=== PATIENT | male | born 1950 | race Hispanic/Latino ===

== ENCOUNTER 2019-03-10 14:32 | Emergency (ER) | payer MEDICARE, OTHER | END 2019-03-10 16:18 | disposition home or self-care (01) | LOC: EDH 14:32 | DX: M71.22 Synovial cyst of popliteal space [Baker], left knee (principal); I10 Essential (primary) hypertension; E78.5 Hyperlipidemia, unspecified; E11.9 Type 2 diabetes mellitus without complications | CPT/HCPCS: 93971 ==

== ENCOUNTER 2019-04-10 22:10 | Emergency (ER) | payer MEDICARE ==
[2019-04-10 23:00] LABS: BASOPHILS % (AUTO) 0.4 % (0.0-5.0); EOSINOPHILS % (AUTO) 1.2 % (0.0-8.0); HEMATOCRIT 37.5 % (42-54); LYMPHOCYTES % (AUTO) 6.2 % (21.0-51.0); MEAN CORPUSCULAR HEMOGLOBIN 32.9 pg (27.0-33.0); MEAN CORPUSCULAR HGB CONC 33.9 g/dL (32.0-36.0); MEAN CORPUSCULAR VOLUME 97.1 fL (79-99); MONOCYTES % (AUTO) 7.1 % (3.0-13.0); NEUTROPHILS % (AUTO) 85.1 % (40.0-77.0); PLATELET COUNT (AUTO) 240 K/uL (130-400); RED BLOOD CELL COUNT(AUTO) 3.87 MIL/uL (4.50-6.20); RED CELL DISTRIBUTION WIDTH 13.7 % (11.0-15.5); WHITE BLOOD COUNT (AUTO) 7.7 K/uL (4.8-10.8)
[2019-04-10 23:00] LABS: APPEARANCE,URINE Clear (CLEAR); BILIRUBIN,URINE Small (NEGATIVE); COLOR,URINE Dark Yellow (YELLOW); GLUCOSE, URINE (UA) Negative (NEGATIVE); KETONES,URINE Trace mg/dL (NEGATIVE); LEUKOCYTE ESTERASE ,URINE Negative (NEGATIVE); NITRATE,URINE Negative (NEGATIVE); OCCULT BLOOD,URINE Negative (NEGATIVE); PROTEIN,URINE Negative (NEGATIVE)
[2019-04-10] MEDS ORDERED: ONDANSETRON HCL 4 MG/2 ML VIAL ONE (23:23)
[2019-04-10] MEDS ORDERED: FAMOTIDINE/PF 20 MG/2 ML VIAL IV ONE (23:23)
[2019-04-10] MEDS ORDERED: METOCLOPRAMIDE 10 MG/2 ML VIAL ONE (23:23)
[2019-04-10] MEDS ORDERED: SODIUM CHLORIDE 0.9% 1000ML 1,000 ML IV ONE (23:24)
[2019-04-10 23:37] LABS: INR 0.97 (0.85-1.15); PARTIAL THROMBOPLASTIN TIME 29.2 SEC (26.3-35.5); PROTHROMBIN TIME 10.2 SEC (9.6-11.6)
[2019-04-10 23:39] LABS: CREATININE 0.8 mg/dL (0.5-1.5); POTASSIUM 3.7 mmol/L (3.5-5.1)
[2019-04-10 23:43] LABS: ALBUMIN 3.7 g/dL (3.5-5.0); BILIRUBIN,TOTAL 0.5 mg/dL (0.2-1.0); TOTAL PROTEIN, SERUM 6.4 g/dL (6.0-8.3)
[2019-04-10] MEDS ORDERED: IOHEXOL-350 75 ML VIAL IV ONE (23:47)
[2019-04-11] MEDS ORDERED: KETOROLAC TROMETHAMINE 30MG/ML ONE (01:20)
== END 2019-04-11 02:17 | disposition home or self-care (01) ==
LOC: EDH 22:10
DX: R10.9 Unspecified abdominal pain (principal); R11.2 Nausea with vomiting, unspecified; I10 Essential (primary) hypertension; E78.5 Hyperlipidemia, unspecified; E11.9 Type 2 diabetes mellitus without complications
CPT/HCPCS: 36415; 74177; 80053; 81003; 82550; 83605; 83690; 84484; 85025; 85610; 85730; 93005; 96361; 96374; 96375; 99285; J1885; J2405; J2765; J3490; J7030; Q9967

== ENCOUNTER → 2019-06-14 | Outpatient (CLI) | payer MEDICARE | END | disposition home or self-care (01) | LOC: RAH 14:18 | PROVIDERS: ATTEND Family Medicine | DX: S83.92XA Sprain of unspecified site of left knee, initial encounter (principal); S93.402A Sprain of unspecified ligament of left ankle, initial encounter; X58.XXXA Exposure to other specified factors, initial encounter; Y93.89 Activity, other specified; Y92.89 Other specified places as the place of occurrence of the external cause; Y99.8 Other external cause status | CPT/HCPCS: 73562; 73610 ==

== ENCOUNTER 2019-09-13 09:51 | Emergency (ER) | payer MEDICARE ==
[2019-09-13] MEDS ORDERED: KETOROLAC TROMETHAMINE 30MG/ML ONE (10:25)
[2019-09-13] MEDS ORDERED: MORPHINE SULFATE 2 MG/ML 1ML SYG ONE (10:26)
[2019-09-13] MEDS ORDERED: MORPHINE SULFATE 4 MG/1ML SYG ONE (10:26)
[2019-09-13] MEDS ORDERED: ONDANSETRON ODT 4 MG TAB ONE (10:26)
== END 2019-09-13 11:23 | disposition home or self-care (01) ==
LOC: EDH 09:51
DX: M71.22 Synovial cyst of popliteal space [Baker], left knee (principal); I10 Essential (primary) hypertension; E11.9 Type 2 diabetes mellitus without complications; Z87.891 Personal history of nicotine dependence
CPT/HCPCS: 96372; 99283; J1885; J2270

== ENCOUNTER → 2019-10-12 | Outpatient (CLI) | payer MEDICARE | END | disposition home or self-care (01) | LOC: RAH 13:42 | PROVIDERS: ATTEND Family Medicine Adult Medicine | DX: M17.12 Unilateral primary osteoarthritis, left knee (principal) | CPT/HCPCS: 73562 ==

== ENCOUNTER 2020-09-24 22:32 | Emergency (ER) | payer MEDICARE ==
[2020-09-25] MEDS ORDERED: HYDROCODONE/ACETAMINOPHEN 10/325 MG TAB ONE (01:19)
[2020-09-25] MEDS ORDERED: ONDANSETRON ODT 4 MG TAB ONE (01:25)
== END 2020-09-25 01:27 | disposition home or self-care (01) ==
LOC: EDH 22:32
DX: S80.02XA Contusion of left knee, initial encounter (principal); S80.01XA Contusion of right knee, initial encounter; E11.29 Type 2 diabetes mellitus with other diabetic kidney complication; I10 Essential (primary) hypertension; W01.0XXA Fall on same level from slipping, tripping and stumbling without subsequent striking against object, initial encounter; Y93.89 Activity, other specified; Y92.89 Other specified places as the place of occurrence of the external cause; Y99.8 Other external cause status
CPT/HCPCS: 73560; 73562

== ENCOUNTER 2021-01-02 08:44 | Emergency (ER) | payer MEDICARE ==
[2021-01-02 09:23] LABS: BASOPHILS % (AUTO) 1.1 % (0.0-5.0); LYMPHOCYTES % (AUTO) 21.6 % (21.0-51.0); MEAN CORPUSCULAR HEMOGLOBIN 31.9 pg (27.0-33.0); MEAN CORPUSCULAR HGB CONC 33.7 g/dL (32.0-36.0); MEAN CORPUSCULAR VOLUME 94.8 fL (79-99); MONOCYTES % (AUTO) 8.4 % (3.0-13.0); NEUTROPHILS % (AUTO) 65.4 % (40.0-77.0); PLATELET COUNT (AUTO) 223 K/uL (130-400); RED BLOOD CELL COUNT(AUTO) 4.01 MIL/uL (4.50-6.20); RED CELL DISTRIBUTION WIDTH 13.6 % (11.0-15.5); WHITE BLOOD COUNT (AUTO) 6.3 K/uL (4.8-10.8)
[2021-01-02] MEDS ORDERED: SODIUM CHLORIDE 0.9% 1000ML 1,000 ML IV ONE (09:36)
[2021-01-02 09:51] LABS: ALBUMIN 3.7 g/dL (3.5-5.0); BILIRUBIN,TOTAL 0.2 mg/dL (0.2-1.0); CREATININE 0.8 mg/dL (0.5-1.5); POTASSIUM 3.8 mmol/L (3.5-5.1); TOTAL PROTEIN, SERUM 7.2 g/dL (6.0-8.3)
[2021-01-02 10:25] LABS: APPEARANCE,URINE Clear (CLEAR); BILIRUBIN,URINE Negative (NEGATIVE); COLOR,URINE Yellow (YELLOW); GLUCOSE, URINE (UA) Negative (NEGATIVE); KETONES,URINE Negative (NEGATIVE); LEUKOCYTE ESTERASE ,URINE Negative (NEGATIVE); NITRATE,URINE Negative (NEGATIVE); OCCULT BLOOD,URINE Negative (NEGATIVE); PH,URINE 6.5 (5.0-8.0); PROTEIN,URINE Negative (NEGATIVE)
== END 2021-01-02 12:53 | disposition home or self-care (01) ==
LOC: EDH 08:44
DX: R51.9 Headache, unspecified (principal); R42 Dizziness and giddiness; I10 Essential (primary) hypertension; E11.9 Type 2 diabetes mellitus without complications
CPT/HCPCS: 36415; 70450; 80053; 81003; 82948; 85025; 96360; 96361; 99284; J7030

== ENCOUNTER → 2021-05-08 | Outpatient (CLI) | payer MEDICARE ==
[~2021-05-08] VITALS: Ht 165.1 cm; Wt 94.5 kg
[~2021-05-08] MED LIST: AMLO-258 PO; CEFAZOLIN SODIUM 1 GM VIAL IVP SCH; CLON0.1T PO; LACTATED RINGERS 1000ML 1,000 ML IV SCH; LOSA100T58 PO; ROPIVICAINE 250MG+KETOROLAC 15MG+EPINEPHRINE 0.3+CLONIDINE 80 IV PRN
[2021-05-08 14:48] LABS: EOSINOPHILS % (AUTO) 1.5 % (0.0-8.0); HEMATOCRIT 39.4 % (42-54); LYMPHOCYTES % (AUTO) 24.8 % (21.0-51.0); MEAN CORPUSCULAR HEMOGLOBIN 32.3 pg (27.0-33.0); MEAN CORPUSCULAR HGB CONC 33.8 g/dL (32.0-36.0); MEAN CORPUSCULAR VOLUME 95.6 fL (79-99); MONOCYTES % (AUTO) 11.7 % (3.0-13.0); NEUTROPHILS % (AUTO) 60.2 % (40.0-77.0); PLATELET COUNT (AUTO) 253 K/uL (130-400); RED BLOOD CELL COUNT(AUTO) 4.12 MIL/uL (4.50-6.20); RED CELL DISTRIBUTION WIDTH 13.6 % (11.0-15.5); WHITE BLOOD COUNT (AUTO) 6.1 K/uL (4.8-10.8)
[2021-05-08 14:51] LABS: APPEARANCE,URINE Clear (CLEAR); BILIRUBIN,URINE Negative (NEGATIVE); COLOR,URINE Yellow (YELLOW); GLUCOSE, URINE (UA) Negative (NEGATIVE); KETONES,URINE Negative (NEGATIVE); LEUKOCYTE ESTERASE ,URINE Negative (NEGATIVE); NITRATE,URINE Negative (NEGATIVE); OCCULT BLOOD,URINE Negative (NEGATIVE); PROTEIN,URINE Negative (NEGATIVE)
[2021-05-08 14:58] LABS: INR 0.98 (0.85-1.15); PROTHROMBIN TIME 10.7 SEC (9.6-11.6)
[2021-05-08 14:59] LABS: PARTIAL THROMBOPLASTIN TIME 27.8 SEC (26.3-35.5)
[2021-05-08 15:03] LABS: CREATININE 0.8 mg/dL (0.5-1.5); POTASSIUM 4.3 mmol/L (3.5-5.1)
[2021-05-13 09:36] VITALS: BP 181/95
== END | disposition home or self-care (01) ==
LOC: DAH 10:00 → EDSTATUS 11:00
PROVIDERS: ATTEND Orthopaedic Surgery
DX: Z01.818 Encounter for other preprocedural examination (principal); Z20.822 Contact with and (suspected) exposure to COVID-19; M17.12 Unilateral primary osteoarthritis, left knee; Z79.01 Long term (current) use of anticoagulants; Z79.899 Other long term (current) drug therapy
CPT/HCPCS: 36415; 73562; 80048; 81003; 85025; 85610; 85730; 87088; 87635; 87641; A6260; C9803; 93005

== ENCOUNTER 2021-06-04 09:26 | Observation (INO) | payer MEDICARE ==
[2021-05-29 15:00] LABS: APPEARANCE,URINE Clear (CLEAR); BILIRUBIN,URINE Negative (NEGATIVE); COLOR,URINE Yellow (YELLOW); GLUCOSE, URINE (UA) Negative (NEGATIVE); KETONES,URINE Negative (NEGATIVE); LEUKOCYTE ESTERASE ,URINE Negative (NEGATIVE); NITRATE,URINE Negative (NEGATIVE); OCCULT BLOOD,URINE Negative (NEGATIVE); PROTEIN,URINE Negative (NEGATIVE)
[2021-05-29 15:09] LABS: CREATININE 0.8 mg/dL (0.5-1.5)
[2021-05-29 15:11] LABS: PROTHROMBIN TIME 10.9 SEC (9.6-11.6)
[2021-05-29 15:12] LABS: PARTIAL THROMBOPLASTIN TIME 28.9 SEC (26.3-35.5)
[2021-06-03 12:10] VITALS: BP 200/99
[2021-06-04] VITALS (28 sets, daily range): BP systolic 142–160; BP diastolic 42–80
[~2021-06-04] VITALS: Ht 168.9 cm; Wt 94.1 kg
[~2021-06-04 09:26] MED LIST changes: -CEFAZOLIN SODIUM 1 GM VIAL IVP SCH; -LACTATED RINGERS 1000ML 1,000 ML IV SCH; +PANT40TA54 PO
[2021-06-04] MEDS: CEFAZOLIN SODIUM 1 GM VIAL IVP ONE ×2 (10:30→15:35)
[2021-06-04] MEDS ORDERED: CEFAZOLIN SODIUM 1 GM VIAL ONE (10:41)
[2021-06-04] MEDS: LACTATED RINGERS 1000ML 1,000 ML IV SCH ×2 (10:56→17:55)
[2021-06-04] MEDS ORDERED: SUCCINYLCHOLINE CHLORIDE 20 MG/ML 10 ML VIAL ONE (13:52)
[2021-06-04] MEDS ORDERED: DEXAMETHASONE SOD PHOSPHATE 10MG/ML 1ML VIAL ONE (13:52)
[2021-06-04] MEDS ORDERED: ONDANSETRON 4MG INJ ONE (13:52)
[2021-06-04] MEDS ORDERED: NEOSTIGMINE 5MG/5ML SYR IV ONE (13:52)
[2021-06-04] MEDS ORDERED: LIDOCAINE PF 100MG/5ML (2%) SYRINGE 5ML ONE (13:52)
[2021-06-04] MEDS ORDERED: GLYCOPYRROLATE 1 MG/5 ML SYRINGE ONE (13:52)
[2021-06-04] MEDS ORDERED: FENTANYL CITRATE PF 50 MCG/1 ML 2ML VIAL ONE (13:52)
[2021-06-04] MEDS ORDERED: PROPOFOL 10 MG/ML 20ML VIAL IV ONE (13:52)
[2021-06-04] MEDS ORDERED: MIDAZOLAM HCL 1 MG/ML 2ML VIAL ONE (13:53)
[2021-06-04] MEDS ORDERED: ROCURONIUM 10MG/1ML SYR 10 MG/ML ML ONE (13:53)
[2021-06-04] MEDS ORDERED: ROPIVACAINE 0.5% 5MG/ML 30ML IJ ONE (13:58)
[2021-06-04] MEDS ORDERED: EPHEDRINE SULFATE 50 MG/ML AMPULE ONE (15:52)
[2021-06-04] MEDS ORDERED: CLONIDINE HCL 0.1 MG TABLET PO PRN (16:00)
[2021-06-04] MEDS ORDERED: OXYCODONE HCL 5 MG TAB PO PRN (16:00)
[2021-06-04] MEDS: 0.9%NACL 1000ML 1,000 ML IV SCH (16:00)
[2021-06-04] MEDS ORDERED: MORPHINE 4 MG SYG IVP PRN (16:00)
[2021-06-04] MEDS: ACETAMINOPHEN 500 MG TABLET PO SCH (16:00)
[2021-06-04] MEDS ORDERED: ONDANSETRON 4MG INJ IVP PRN (16:00)
[2021-06-04] MEDS ORDERED: TRANEXAMIC ACID 1000MG/10ML ONE (16:07)
[2021-06-04] MEDS ORDERED: MEPERIDINE-PF 25 MG/ML SYG ONE ×2 (17:57→18:35)
[2021-06-04] MEDS: TRAMADOL HCL 50 MG TABLET PO SCH (18:00)
[2021-06-04] MEDS: HYDROCODONE/ACETAMINOPHEN 5/325 MG TAB PO PRN (20:23)
[2021-06-04] MEDS: ASPIRIN 81 MG EC TAB PO SCH (20:23)
[2021-06-04] MEDS: AMLODIPINE 5 MG TAB PO SCH (20:23)
[2021-06-04] MEDS: CELECOXIB 200 MG CAP PO SCH (20:23)
[2021-06-04] MEDS: CEFAZOLIN SODIUM 1 GM VIAL IVP SCH (20:24)
[2021-06-05] VITALS (7 sets, daily range): BP systolic 137–159; BP diastolic 52–70
[2021-06-05] MEDS: TRAMADOL HCL 50 MG TABLET PO SCH ×5 (00:59→23:59)
[2021-06-05] MEDS: ACETAMINOPHEN 500 MG TABLET PO SCH ×4 (01:00→23:59)
[2021-06-05 04:03] LABS: HEMATOCRIT 33.8 % (42-54); MEAN CORPUSCULAR HEMOGLOBIN 32.2 pg (27.0-33.0); MEAN CORPUSCULAR HGB CONC 33.1 g/dL (32.0-36.0); MEAN CORPUSCULAR VOLUME 97.1 fL (79-99); RED BLOOD CELL COUNT(AUTO) 3.48 MIL/uL (4.50-6.20); RED CELL DISTRIBUTION WIDTH 13.6 % (11.0-15.5)
[2021-06-05] MEDS: CEFAZOLIN SODIUM 1 GM VIAL IVP SCH (04:18)
[2021-06-05] MEDS: 0.9%NACL 1000ML 1,000 ML IV SCH ×2 (04:19→07:50)
[2021-06-05 04:25] LABS: POTASSIUM 4.4 mmol/L (3.5-5.1)
[2021-06-05] MEDS: POLYETHYLENE GLYCOL 3350 17 GM POWD.PACK PO SCH (07:47)
[2021-06-05] MEDS: PANTOPRAZOLE 40 MG TAB DR PO PRN (07:47)
[2021-06-05] MEDS: ASPIRIN 81 MG EC TAB PO SCH ×2 (07:47→19:49)
[2021-06-05] MEDS: CELECOXIB 200 MG CAP PO SCH ×2 (07:47→19:49)
[2021-06-05] MEDS: LOSARTAN 100 MG TABLET PO SCH (07:48)
[2021-06-05] MEDS ORDERED: ESOM20TA PO (13:58)
[2021-06-05] MEDS ORDERED: ESOMEPRAZOLE MAGNESIUM 20 MG PO PRN (14:00)
[2021-06-05] MEDS ORDERED: MAG/ALUM/SIMETH 30 ML UDCUP ONE (19:44)
[2021-06-05] MEDS ORDERED: FAMOTIDINE 20MG TAB ONE (19:44)
[2021-06-05] MEDS: AMLODIPINE 5 MG TAB PO SCH (19:50)
[2021-06-05] MEDS ORDERED: MAG/ALUM/SIMETH 30 ML UDCUP PO PRN (20:00)
[2021-06-05] MEDS: FAMOTIDINE 20MG TAB PO SCH (21:00)
[2021-06-06 04:22] VITALS: BP 145/58
[2021-06-06] MEDS: TRAMADOL HCL 50 MG TABLET PO SCH ×2 (05:23→13:03)
[2021-06-06 08:00] VITALS: BP 144/60
[2021-06-06] MEDS: POLYETHYLENE GLYCOL 3350 17 GM POWD.PACK PO SCH (08:53)
[2021-06-06] MEDS: LOSARTAN 100 MG TABLET PO SCH (08:54)
[2021-06-06] MEDS: PANTOPRAZOLE 40 MG TAB DR PO PRN (08:54)
[2021-06-06] MEDS: ASPIRIN 81 MG EC TAB PO SCH (08:55)
[2021-06-06] MEDS: FAMOTIDINE 20MG TAB PO SCH (08:55)
[2021-06-06] MEDS: ACETAMINOPHEN 500 MG TABLET PO SCH ×2 (08:55→15:26)
[2021-06-06] MEDS: HYDROCODONE/ACETAMINOPHEN 5/325 MG TAB PO PRN (08:56)
[2021-06-06] MEDS: CELECOXIB 200 MG CAP PO SCH (09:00)
[2021-06-06 12:02] VITALS: BP 132/55
[2021-06-07] MEDS ORDERED: BISACODYL 10 MG SUPP.RECT RC PRN (16:00)
== END 2021-06-06 16:15 | disposition home or self-care (01) ==
LOC: DAH 09:26 → DAHIP 09:27 → 4AH 19:13
PROVIDERS: ADMIT Orthopaedic Surgery; ATTEND Orthopaedic Surgery
DX: M17.12 Unilateral primary osteoarthritis, left knee (principal); Z20.822 Contact with and (suspected) exposure to COVID-19; Z79.899 Other long term (current) drug therapy; Z98.890 Other specified postprocedural states; Z79.82 Long term (current) use of aspirin
CPT/HCPCS: 27447; 36415 ×2; 73562; 80048 ×2; 81003; 85027; 85610; 85730; 87088; 87635; 87641; 96361; 96374; 96375 ×2; 96376; 97039 ×4; 97116 ×4; 97161; 97530 ×3; A4213; A4215; A4216; A4221; A4222; A4223 ×2; A4248; A4600 ×2; A4649 ×6; A4663; A4930 ×2; A5120; A6212; A9272; C1776; C9803; G0378 ×46; G8978; G8979; G8980; G8981; G8982; G8983; J0171; J0330; J0690 ×3; J0735; J1100; J1885; J2001; J2175 ×2; J2250; J2270; J2405 ×2; J2704; J2710; J2795 ×2; J3010; J3490 ×3; J7030; J7120 ×2

== ENCOUNTER → 2021-12-25 | Outpatient (CLI) | payer MEDICARE ==
[~2021-12-25] MED LIST changes: +ESOM20TA PO; -PANT40TA54 PO; -ROPIVICAINE 250MG+KETOROLAC 15MG+EPINEPHRINE 0.3+CLONIDINE 80 IV PRN
== END | disposition home or self-care (01) ==
LOC: RAH 10:00
PROVIDERS: ATTEND Family Medicine
DX: I16.0 Hypertensive urgency (principal); N28.89 Other specified disorders of kidney and ureter; R07.89 Other chest pain
CPT/HCPCS: 76770; 93975

== ENCOUNTER → 2022-12-17 | Outpatient (CLI) | payer OTHER ==
[~2022-12-17] MED LIST changes: +CARV6.25 PO; -CLON0.1T PO; -ESOM20TA PO; +HYDR25TA PO; +LEVO750T68 PO; +METF-444 PO; +MULT-1296 PO; +SPIR25TA6 PO
== END | disposition home or self-care (01) ==
LOC: SLP 20:20
PROVIDERS: ATTEND Student in an Organized Health Care Education/Training Program
DX: G47.33 Obstructive sleep apnea (adult) (pediatric) (principal)
CPT/HCPCS: 95810

== ENCOUNTER → 2022-12-23 | Outpatient (CLI) | payer OTHER | END | disposition home or self-care (01) | LOC: SLP 10:00 | PROVIDERS: ATTEND Student in an Organized Health Care Education/Training Program | DX: G47.33 Obstructive sleep apnea (adult) (pediatric) (principal) | CPT/HCPCS: 95811 ==

== ENCOUNTER 2023-10-02 18:36 | Emergency (ER) | payer OTHER ==
[~2023-10-02] VITALS: Ht 170.2 cm; Wt 87.5 kg
[~2023-10-02 18:36] MED LIST changes: -LOSA100T58 PO; +LOSA100T59 PO
[2023-10-02] MEDS ORDERED: MELO-106 PO (20:44)
[2023-10-02] MEDS ORDERED: CYCL10TA16 PO (20:44)
[2023-10-02 21:04] VITALS: BP 164/72; PULSE 70; RESP 16; O2SAT 97
== END 2023-10-02 21:02 | disposition home or self-care (01) ==
LOC: EDH 18:36
DX: S06.9XAA Unspecified intracranial injury with loss of consciousness status unknown, initial encounter (principal); E11.9 Type 2 diabetes mellitus without complications; M47.892 Other spondylosis, cervical region; I10 Essential (primary) hypertension; E78.00 Pure hypercholesterolemia, unspecified; Z79.84 Long term (current) use of oral hypoglycemic drugs; Z79.899 Other long term (current) drug therapy; Z98.890 Other specified postprocedural states; X58.XXXA Exposure to other specified factors, initial encounter; Y93.89 Activity, other specified; Y92.89 Other specified places as the place of occurrence of the external cause; Y99.8 Other external cause status
CPT/HCPCS: 70450; 72125

== ENCOUNTER 2024-01-04 20:10 | Emergency (ER) | payer OTHER ==
[~2024-01-04] VITALS: Ht 167.6 cm; Wt 92.1 kg
[~2024-01-04 20:10] MED LIST changes: +CYCL10TA16 PO; +MELO-106 PO
[2024-01-04 21:23] LABS: BASOPHILS # (AUTO) 0.05 K/uL (0.00-0.20); BASOPHILS % (AUTO) 0.3 % (0.0-5.0); EOSINOPHILS # (AUTO) 0.13 K/uL (0.00-0.70); EOSINOPHILS % (AUTO) 0.9 % (0.0-8.0); HEMATOCRIT 31.5 % (42-54); IMMATURE GRANULOCYTE ABSOLUTE 0.08 K/uL (0-1); LYMPHOCYTES # (AUTO) 1.3 K/uL (1.0-4.8); LYMPHOCYTES % (AUTO) 8.5 % (21.0-51.0); MEAN CORPUSCULAR HGB CONC 34.9 g/dL (32.0-36.0); MEAN CORPUSCULAR VOLUME 94.6 fL (79-99); MONOCYTES # (AUTO) 1.4 K/uL (0.1-1.0); MONOCYTES % (AUTO) 9.1 % (3.0-13.0); NEUTROPHILS # (AUTO) 12.3 K/uL (1.8-7.7); NEUTROPHILS % (AUTO) 80.7 % (40.0-77.0); PLATELET COUNT (AUTO) 194 K/uL (130-400); RED BLOOD CELL COUNT(AUTO) 3.33 MIL/uL (4.50-6.20); RED CELL DISTRIBUTION WIDTH 13.7 % (11.0-15.5); WHITE BLOOD COUNT (AUTO) 15.2 K/uL (4.8-10.8)
[2024-01-04 21:32] LABS: CREATININE 1.1 mg/dL (0.5-1.5); POTASSIUM 3.8 mmol/L (3.5-5.1)
[2024-01-04 21:42] LABS: ALBUMIN 3.6 g/dL (3.5-5.0); BILIRUBIN,TOTAL 0.7 mg/dL (0.2-1.0)
[2024-01-04 21:45] LABS: B-TYPE NATRIURETIC PEPTIDE 60 pg/mL (0-100)
[2024-01-05] MEDS: DIPHENHYDRAMINE HCL 25 MG CAPSULE PO ONE (00:49)
[2024-01-05] MEDS: IBUPROFEN 800 MG TAB PO ONE (00:50)
[2024-01-05] MEDS: FAMOTIDINE 20MG TAB PO ONE (00:50)
[2024-01-05 01:18] LABS: RAPID GROUP A STREP negative (NEGATIVE)
[2024-01-05 01:26] LABS: INFLUENZA TYPE A Negative For Type A (NEGATIVE); INFLUENZA TYPE B Negative For Type B (NEGATIVE)
[2024-01-05 01:41] LABS: SARS-CoV-2, RNA, NAAT NEGATIVE SARS CoV-2 (NEGATIVE)
[2024-01-05 03:50] VITALS: BP 162/50; PULSE 59; RESP 18; O2SAT 95
[2024-01-05] MEDS ORDERED: LACT1CAP81 PO (04:05)
[2024-01-05] MEDS ORDERED: ALBUHFA IH (04:05)
[2024-01-05] MEDS ORDERED: IBUP-1493 PO (04:05)
[2024-01-05] MEDS ORDERED: FAMO-136 PO (04:05)
[2024-01-05] MEDS ORDERED: ACET-66 PO (04:05)
[2024-01-05] MEDS ORDERED: LORA-868 PO (04:05)
== END 2024-01-05 04:21 | disposition home or self-care (01) ==
LOC: EDH 20:10
DX: B34.9 Viral infection, unspecified (principal); I10 Essential (primary) hypertension; E11.9 Type 2 diabetes mellitus without complications; Z20.822 Contact with and (suspected) exposure to COVID-19; Z79.84 Long term (current) use of oral hypoglycemic drugs; Z79.899 Other long term (current) drug therapy; Z98.890 Other specified postprocedural states
CPT/HCPCS: 99284; 71045; 87635; 84484; 80053; 83880; 85025; 87880; 87804 ×2; 36415; Q0163

== ENCOUNTER → 2024-05-10 | Outpatient (CLI) | payer OTHER ==
[~2024-05-10] MED LIST changes: +ACET-66 PO; +ALBUHFA IH; +FAMO-136 PO; +IBUP-1493 PO; +LACT1CAP81 PO; +LORA-868 PO
[2024-05-10 11:57] LABS: HEMOGLOBIN A1C 5.7 % (4.0-6.0)
[2024-05-10 12:12] LABS: CHOLESTEROL 117 mg/dL (<200); HDL CHOLESTEROL 39 mg/dL (29-71); LDL DIRECT 74 mg/dL (0-99); TRIGLYCERIDES 59 mg/dL (30-200)
== END | disposition home or self-care (01) ==
LOC: LAB 08:17
PROVIDERS: ATTEND Student in an Organized Health Care Education/Training Program
DX: E11.65 Type 2 diabetes mellitus with hyperglycemia (principal); G47.33 Obstructive sleep apnea (adult) (pediatric)
CPT/HCPCS: 36415; 80061; 83036

== ENCOUNTER → 2024-12-12 | Outpatient (CLI) | payer OTHER | END | disposition home or self-care (01) | LOC: SHCH 07:33 | PROVIDERS: ATTEND Student in an Organized Health Care Education/Training Program | DX: I10 Essential (primary) hypertension (principal) | CPT/HCPCS: 93975 ==